=== PATIENT | male | born 1990 | race Caucasian/White ===

== ENCOUNTER 2019-06-28 14:12 | Emergency (ER) | payer OTHER ==
[~2019-06-28] VITALS: Ht 167.6 cm; Wt 77.0 kg
[2019-06-28] MEDS ORDERED: IBUPROFEN 400MG TABLET PO ONE (14:45)
[2019-06-28 14:52] VITALS: BP 122/80
== END 2019-06-28 16:49 | disposition home or self-care (01) ==
LOC: ER 14:30
DX: S49.82XA Other specified injuries of left shoulder and upper arm, initial encounter (principal); V49.49XA Driver injured in collision with other motor vehicles in traffic accident, initial encounter; Y93.89 Activity, other specified; Y92.89 Other specified places as the place of occurrence of the external cause; Y99.8 Other external cause status; N50.811 Right testicular pain
CPT/HCPCS: 73030; 76870; 93976; 99284